=== PATIENT | female | born 1945 | race Asian ===

== ENCOUNTER 2020-06-26 15:09 | Outpatient (REF) | payer MEDICARE, MEDICAID, SELFPAY | END 2020-06-26 15:10 | disposition home or self-care (01) | LOC: HO.HAP 15:09 | PROVIDERS: Visit Provider Family Medicine | DX: Z46.1 Encounter for fitting and adjustment of hearing aid (principal) | CPT/HCPCS: V5266 ==

== ENCOUNTER 2021-07-04 14:54 | Outpatient (REF) | payer MEDICARE, MEDICAID, SELFPAY | END 2021-07-04 14:55 | disposition home or self-care (01) | LOC: HO.HAP 14:54 | PROVIDERS: Visit Provider Family Medicine | DX: Z46.1 Encounter for fitting and adjustment of hearing aid (principal); H90.3 Sensorineural hearing loss, bilateral | CPT/HCPCS: V5266 ==

== ENCOUNTER 2021-10-16 11:21 | Emergency (ER) | payer MEDICARE, MEDICAID, SELFPAY ==
[2021-10-16 13:34] VITALS: BP 147/66; PULSE 77; RESP 18; O2SAT 99; BMI 26.4
== END 2021-10-16 21:22 | disposition left against medical advice (07) ==
LOC: HO.ED 21:15
PROVIDERS: Emergency Provider Emergency Medicine
DX: M25.551 Pain in right hip (principal); Z94.0 Kidney transplant status
CPT/HCPCS: 99281; 99282